=== PATIENT | male | born 1975 | race African-American/Black ===

== ENCOUNTER 2019-02-09 14:26 | Emergency (ER) | payer BC ==
--- NOTE | 2019-02-09 15:42 | ER ---
Nurse's Notes [facility] Name: Brennan Dudley Age: 43 yrs Sex: Male : 1975 Arrival Date: 02/09/2019 Time: 14:28 Bed 12 Private MD: Diagnosis: Pain in left elbow Presentation: 02/09 14:36 Presenting complaint: Patient states: "I fell back in November and my left elbow has been aa5 hurting since then". 14:36 Acuity: AMAN 4 aa5 14:36 Transition of care: patient was not received from another setting of care. Onset of aa5 symptoms was February 2019. Risk Assessment: Do you want to hurt yourself or someone else? Patient reports no desire to harm self or others. Initial Sepsis Screen: Does the patient meet any 2 criteria? No. Patient's initial sepsis screen is negative. Does the patient have a suspected source of infection? No. Patient's initial sepsis screen is negative. Care prior to arrival: None. 14:36 Method Of Arrival: Ambulatory aa5 Historical: - Allergies: 14:36 Aleve; aa5 - PMHx: 14:36 None; aa5 - PSHx: 14:36 back; aa5 - Ebola Screening: : No symptoms or risks identified at this time. Assessment: 14:38 General: Appears comfortable, Behavior is calm, cooperative. Pain: Complains of pain in aa5 left elbow Pain does not radiate. Quality of pain is described as aching, dull, Is intermittent. Neuro: Level of Consciousness is awake, alert, obeys commands, Oriented to person, place, time, situation. Cardiovascular: Patient's skin is warm and dry. Respiratory: Airway is patent Respiratory effort is even, unlabored, Respiratory pattern is regular, symmetrical. GI: No signs and/or symptoms were reported involving the gastrointestinal system. : No signs and/or symptoms were reported regarding the genitourinary system. EENT: No signs and/or symptoms were reported regarding the EENT system. Derm: Skin is dry, Skin is normal, Skin temperature is warm. Musculoskeletal: Range of motion: intact in all extremities, Swelling absent. Vital Signs: 14:38 BP 119 / 74; Pulse 93; Resp 16 S; Temp 99.0(TE); Pulse Ox 99% on R/A; Weight 81.65 kg aa5 (R); Height 6 ft. 0 in. (182.88 cm) (R); Pain 1/10; 14:38 Body Mass Index 24.41 (81.65 kg, 182.88 cm) aa5 ED Course: 14:28 Patient arrived in ED. as 14:36 Arm band placed on Patient placed in an exam room, on a stretcher. aa5 14:38 Triage completed. aa5 14:39 Aruna Stern, ALMAS is Primary Nurse. aa5 14:51 Jazmyn Scales NP is PHCP. rh1 14:51 Umesh Matson MD is Attending Physician. rh1 15:41 Jian Scruggs MD is Referral Physician. rh1 15:42 No provider procedures requiring assistance completed. Patient did not have IV access ss during this emergency room visit. Administered Medications: No medications were administered Outcome: 15:41 Discharge ordered by MD. rh1 15:42 Medical screen evaluation completed per provider. Patient declined treatment. ss 15:42 Condition: good 15:42 Instructed on follow up and referral plans. 15:42 Patient left the ED. ss Signatures: Mary Gaming as Aruna Stern, RN RN aa5 Susana Reyes RN RN ss Jazmyn Scales NP [employer] rh1 Corrections: (The following items were deleted from the chart) 14:40 14:38 Pulse 93bpm; Resp 16bpm; Spontaneous; Pulse Ox 99% RA; Temp 99.0F Temporal; 81.65 aa5 kg Reported; Height 6 ft. 0 in. Reported; BMI: 24.4; Pain 1/10; aa5
--- NOTE | 2019-02-09 15:42 | EDPHYS ---
Physician Documentation [facility] Name: Brennan Dudley Age: 43 yrs Sex: Male : 1975 Arrival Date: 02/09/2019 Time: 14:28 Bed 12 Private MD: ED Physician Umesh Matson HPI: 02/09 15:12 This 43 yrs old Black Male presents to ER via Ambulatory with complaints of Elbow Pain. rh1 15:12 The patient or guardian complains of pain, that is acute, tenderness. The complaints rh1 affect the left elbow. Context: The problem was sustained at home, resulted from a fall, while walking. Onset: The symptoms/episode began/occurred 3 month(s) ago. Treatment prior to arrival includes: no previous treatment. Modifying factors: The symptoms are alleviated by remaining still, the symptoms are aggravated by extension. Associated signs and symptoms: Pertinent negatives: decreased range of motion, deformity, erythema, numbness, swelling, tingling, weakness. Severity of symptoms: At their worst the symptoms were moderate, in the emergency department the symptoms have improved. The patient has not experienced similar symptoms in the past. The patient has not recently seen a physician. Approx. 3 months ago, he was walking down stairs, turned and slipped on the last stair, causing the left elbow to hit the ground. He has had pain with extension at the left elbow since the injury. He has taken ASA intermittently for pain, overall not bad enough to take it regularly. Denies any decreased ROM, no paresthesias or weakness at left upper arm. Denies any other injuries.. Historical: - Allergies: 14:36 Aleve; aa5 - PMHx: 14:36 None; aa5 - PSHx: 14:36 back; aa5 - Ebola Screening: : No symptoms or risks identified at this time. ROS: 15:12 Constitutional: Negative for fever rh1 15:12 MS/extremity: Positive for pain, tenderness, Negative for decreased range of motion, erythema, paresthesias, swelling, tingling. 15:12 Skin: Negative for erythema. 15:12 Neuro: Negative for numbness, tingling, weakness. 15:12 All other systems are negative. Exam: 15:12 Constitutional: This is a well developed, well nourished patient who is awake, alert, rh1 and in no acute distress. Head/Face: Normocephalic, atraumatic. Neck: Trachea midline, and no cervical lymphadenopathy. Supple, full range of motion without nuchal rigidity. No Meningismus. Chest/axilla: Normal chest wall appearance and motion. Nontender with no deformity. No lesions are appreciated. Cardiovascular: Regular rate and rhythm with a normal S1 and S2. No gallops, murmurs, or rubs. No JVD. No pulse deficits. Respiratory: Lungs have equal breath sounds bilaterally, clear to auscultation. No rales, rhonchi or wheezes noted. No increased work of breathing. Abdomen/GI: Soft, non-tender, with normal bowel sounds. No distension. No guarding or rebound. No evidence of tenderness throughout. Back: No spinal tenderness. No costovertebral tenderness. Full range of motion. Skin: Warm, dry with normal turgor. Normal color with no rashes, no lesions, and no evidence of cellulitis. 15:12 Musculoskeletal/extremity: Extremities: grossly normal except: noted in the left elbow: pain, tenderness, pain with extension, mildly tender at lateral elbow, There is no evidence of decreased ROM, deformity, erythema, swelling, ROM: full active range of motion, in the left elbow, full passive range of motion, in the left elbow, limited active range of motion due to pain, in the left elbow, Pulses: noted to be 2+ in the right radial artery and left radial artery, Perfusion: the extremity is pink, warm, with brisk capillary refill, Sensation intact. 15:12 Neuro: Orientation: is normal, appropriate for stated age, to person, place \T\ time. Mentation: is normal, lucid, able to follow commands, Motor: is normal, moves all fours, strength is 5/5 in all extremities, strength is 5/5 in the left hand and left arm, Sensation: is normal, no obvious gross deficits, numbness, is not appreciated, tingling, is not appreciated, Gait: is steady, at a normal pace, without difficulty. Vital Signs: 14:38 BP 119 / 74; Pulse 93; Resp 16 S; Temp 99.0(TE); Pulse Ox 99% on R/A; Weight 81.65 kg aa5 (R); Height 6 ft. 0 in. (182.88 cm) (R); Pain /; 14:38 Body Mass Index 24.41 (81.65 kg, 182.88 cm) aa5 MDM: 15:12 Patient medically screened. rh1 15:12 Data reviewed: vital signs, nurses notes, and as a result, I will discharge patient. rh1 Data interpreted: Pulse oximetry: on room air is 99 %. Interpretation: normal. Counseling: I had a detailed discussion with the patient and/or guardian regarding: the historical points, exam findings, and any diagnostic results supporting the discharge/admit diagnosis, the need for outpatient follow up, a family practitioner, a orthopedic surgeon, to return to the emergency department if symptoms worsen or persist or if there are any questions or concerns that arise at home. 15:17 Medical screen evaluation completed. [facility]. rh1 Administered Medications: No medications were administered Disposition: 15:12 left elbow pain. rh1 17:55 Co-signature as Attending Physician, Umesh Matson MD. rn Disposition: 02/09/19 15:41 Discharged to Home as Medical Screen. Impression: Pain in left elbow. - Condition is Stable. - Discharge Instructions: Joint Pain. - Medication Reconciliation Form, Thank You Letter, Antibiotic Education, Prescription Opioid Use form. - Follow up: Jian Scruggs MD; When: 7 - 10 days; Reason: Further diagnostic work-up, Recheck today's complaints, Continuance of care. Follow up: Emergency Department; When: As needed; Reason: If symptoms return, Worsening of condition. - Problem is new. - Symptoms are unchanged. Signatures: Dispatcher [employer] EDMS Umesh Matson MD MD rn Calderon, Audri, RN RN aa5 Susana Reyes RN RN ss Jones, Rachel, [employer]ITION[employer] rh1 Corrections: (The following items were deleted from the chart) 15:42 15:41 02/09/2019 15:41 Discharged to Home as Medical Screen. Impression: Pain in left ss elbow. Condition is Stable. Forms are Medication Reconciliation Form, Thank You Letter, Antibiotic Education, Prescription Opioid Use. Follow up: Dr. Jian Scruggs; When: 7 - 10 days; Reason: Further diagnostic work-up, Recheck today's complaints, Continuance of care. Follow up: Emergency Department; When: As needed; Reason: If symptoms return, Worsening of condition. Problem is new. Symptoms are unchanged. rh1
[2019-02-09 15:54] VITALS: BP 119/74; TEMP 99; O2SAT 99
== END 2019-02-09 15:42 | disposition home or self-care (01) ==
LOC: ER 14:26
DX: M25.522 Pain in left elbow (principal)
CPT/HCPCS: 99281